=== PATIENT | female | born 1990 | race Caucasian/White ===

== ENCOUNTER 2017-12-26 18:44 | Emergency (ER) | payer OTHER ==
[2017-12-26 19:02] VITALS: BP 111/67
[2017-12-26] MEDS ORDERED: Acetaminophen ADULT LIQ* 650 MG/20.3 ML UDC PO ONE (19:20)
--- NOTE | 2017-12-26 19:22 | UC ---
Headache HPI - HPI Summary HPI Summary: 27 yo female presents with day 4 of a constant headache. Worsening today. 4 days ago her headache began as a diffuse discomfort and throbbing. Today she developed a worsening headache, fever, chills, body aches, nausea, and difficulty concentrating while at work. Has never had a headache like this before. She tells me that she has a history of CP and migraines, but only gets migraines when she has a sinus infection. She denies vision changes, sinus symptoms, cough, SOB, chest pain, abdominal pain, vomiting, dysuria, flank pain , vaginal bleeding. No recent travel. Of note, she mentions that her daughter had hand, foot, and mouth disease about 2 weeks ago. - History Of Current Complaint Chief Complaint: UCHeadache Stated Complaint: HEADACHE Time Seen by Provider: 12/26/17 19:09 Hx Obtained From: Patient Hx Last Menstrual Period: 12/17/17 Onset/Duration: Gradual Onset Initially Headache Was: "Worst Headache Ever" Currently Pain Is: Severe Pain Intensity: 10 Pain Scale Used: 0-10 Numeric Timing: Constant - Allergies/Home Medications Allergies/Adverse Reactions: Allergies Allergy/AdvReac Type Severity Reaction Status Date / Time Latex, Natural Rubber Allergy Intermediate Hives Verified 12/26/17 19:02 Home Medications: Home Medications NK [No Home Medications Reported] 12/26/17 [History Confirmed 12/26/17] PMH/Surg Hx/FS Hx/Imm Hx - Additional Past Medical History Additional PMH: CP - Surgical History Surgical History: None - Family History Known Family History: Positive: None - Social History Occupation: Employed Full-time Lives: With Family Alcohol Use: None Substance Use Type: None Smoking Status (MU): Never Smoked Tobacco Review of Systems Constitutional: Fever, Chills, Fatigue, Other - Body aches Skin: Negative Eyes: Negative ENT: Negative Respiratory: Negative Cardiovascular: Negative Gastrointestinal: Nausea Genitourinary: Negative Motor: Negative Neurovascular: Negative Musculoskeletal: Negative Neurological: Headache, Weakness Psychological: Negative All Other Systems Reviewed And Are Negative: Yes Physical Exam - Summary Physical Exam Summary: GENERAL: Moderately ill appearing. Appears fatigued. Sitting in wheelchair with warm blanket. SKIN: No rashes, sores, or open wounds. HEENT: Head: AT/NC Eyes: PERRLA. EOM intact. Conjunctiva clear without inflammation or discharge. Ears: Hearing grossly normal. TMs intact, no bulging, erythema, or edema. Nose: Nasal mucosa pink and moist. NTTP maxillary and frontal sinus. Throat: Posterior oropharynx without exudates, erythema, or tonsillar enlargement. Uvula midline. NECK: Supple. Nontender. No lymphadenopathy. CHEST: CTAB. No r/r/w. No accessory muscle use. Breathing comfortably and in no distress. CV: RRR. Without m/r/g. Pulses intact. Brisk cap refill. ABDOMEN: Soft. NTTP. No distention or guarding. No CVA tenderness. Bowel sounds present MSK: Moderate TTP about cervical spine. Pain with flexion and extension of c- sprine. UEs and LEs FROM and symmetric strength throughout. No edema. NEURO: Alert. Positive Kernig sign b/l. Negative Brudzinski. CN II-XII grossly intact. PSYCH: Age appropriate behavior. Triage Information Reviewed: Yes Vital Signs: Initial Vital Signs Temp 102.8 F 12/26/17 18:55 Pulse 97 12/26/17 18:55 Resp 18 12/26/17 18:55 BP 111/67 12/26/17 18:55 Pulse Ox 98 12/26/17 18:55 Laboratory Tests 12/26/17 12/26/17 12/26/17 19:14 19:17 19:19 POC Urine Color Yellow POC Urine Clarity Clear POC Urine pH 7.0 POC Ur Specif [place] 1.015 POC Urine Protein Negative POC Ur Glucose (UA) Negative POC Urine Ketones Negative POC Urine Blood Trace-intact A POC Urine Nitrite Negative POC Urine Bilirubin Negative POC Urine Urobilinogen 0.2 POC U Leukocyte Esteras Negative POC Ur Test Influenza A (Rapid) Negative Influenza B (Rapid) Negative Group A Strep Rapid Negative 12/26/17 19:22 POC Urine Color POC Urine Clarity POC Urine pH POC Ur Specif [place] POC Urine Protein POC Ur Glucose (UA) POC Urine Ketones POC Urine Blood POC Urine Nitrite POC Urine Bilirubin POC Urine Urobilinogen POC U Leukocyte Esteras POC Ur Test Negative Influenza A (Rapid) Influenza B (Rapid) Group A Strep Rapid Vital Signs Reviewed: Yes Headache Course/Dx - Course Course Of Treatment: Flu, strep, UA, and negative. 975mg of tylenol given in the clinical course. Given the patient's history and exam, she could have a viral illness such as coxsackie, however there is also a suspicion for meningitis - therefore I have advised her to be further evaluated in the ED. She adamantly refused ambulance transfer and her [id number] will drive her. - Differential Dx/Diagnosis Provider Diagnoses: Fever. Neck pain. Body aches Discharge - Sign-Out/Discharge Documenting (check all that apply): Patient Departure - Discharge Plan Condition: Stable Disposition: TRANS HIGHER LVL OF CARE FAC Referrals: Radha Sawant NP [Primary Care Provider] - Additional Instructions: Please go to the ER for further evaluation of your worsening headache and fever - Billing Disposition and Condition Condition: STABLE Disposition: Trans Higher Lvl of Care Fac
[2017-12-26] MEDS ORDERED: Acetaminophen TAB* 325 MG PO ONE (19:25)
== END 2017-12-26 19:45 | disposition short-term general hospital (02) ==
LOC: UCEAST 18:44
DX: R50.9 Fever, unspecified (principal); M54.2 Cervicalgia; M79.1 Myalgia; Z91.040 Latex allergy status
CPT/HCPCS: 81003; 84702; 87651; 99212; A9270-GY; G0463

== ENCOUNTER 2018-06-16 11:03 | Emergency (ER) | payer OTHER ==
[2018-06-16] MEDS ORDERED: Acetaminophen TAB* 325 MG PO ONE (11:39)
--- NOTE | 2018-06-16 11:42 | UC ---
FLU HPI - HPI Summary HPI Summary: 27 yo female presents with fever, chills, body aches, sore throat, and productive cough since yesterday. She has taken ibuprofen for her symptoms with little relief. She does feels SOB at times and endorses "lung pain" when breathing. She is nauseous, but has not vomited. Denies abdominal pain, dysuria , back pain. - History of Current Complaint Chief Complaint: UCGeneralIllness Stated Complaint: SORE THROAT NAUSEA Time Seen by Provider: 06/16/18 11:41 Hx Last Menstrual Period: 05/17/18 Onset/Duration: Sudden Onset Severity Currently: Severe Severity Initially: Severe Pain Intensity: 10 Pain Scale Used: 0-10 Numeric - Allergy/Home Medications Allergies/Adverse Reactions: Allergies Allergy/AdvReac Type Severity Reaction Status Date / Time Latex, Natural Rubber Allergy Intermediate Hives Verified 06/16/18 11:32 PMH/Surg Hx/FS Hx/Imm Hx - Additional Past Medical History Additional PMH: None - Surgical History Surgical History: None - Family History Known Family History: Positive: None - Social History Lives: With Family Alcohol Use: None Substance Use Type: None Smoking Status (MU): Never Smoked Tobacco Review of Systems All Other Systems Reviewed And Are Negative: Yes Constitutional: Positive: Fever, Chills, Fatigue, Other - Body aches Skin: Positive: Negative Eyes: Positive: Negative ENT: Positive: Sore Throat Respiratory: Positive: Shortness Of Breath, Cough Cardiovascular: Positive: Negative Gastrointestinal: Positive: Nausea Genitourinary: Positive: Negative Neurovascular: Positive: Negative Neurological: Positive: Negative Psychological: Positive: Negative Physical Exam - Summary Physical Exam Summary: GENERAL: Mildly ill appearing. SKIN: No rashes, sores, lesions, or open wounds. HEENT: Head: AT/NC Eyes: Conjunctiva clear without inflammation or discharge. Ears: Hearing grossly normal. TMs intact, no bulging, erythema, or edema. Nose: Nasal mucosa pink and moist. NTTP maxillary and frontal sinus. Throat: Posterior oropharynx without exudates, erythema, or tonsillar enlargement. Uvula midline. NECK: Supple. Nontender. No lymphadenopathy. CHEST: Decreased breath sounds LLL. No r/r. No accessory muscle use. Breathing comfortably and in no distress. CV: Tachycardic. Without m/r/g. Pulses intact. Cap refill <2seconds NEURO: Alert. PSYCH: Age appropriate behavior. Triage Information Reviewed: Yes Vital Signs: Initial Vital Signs Temp 105 F 06/16/18 11:28 Pulse 120 06/16/18 11:28 Resp 20 06/16/18 11:28 BP 112/58 06/16/18 11:28 Pulse Ox 98 06/16/18 11:28 Laboratory Tests 06/16/18 06/16/18 06/16/18 11:43 11:45 11:49 POC Urine Color Yellow POC Urine Clarity Cloudy POC Urine pH 6.5 POC Ur Specif [place] 1.020 POC Urine Protein Negative POC Ur Glucose (UA) Negative POC Urine Ketones Negative POC Urine Blood 2+ A POC Urine Nitrite Positive A POC Urine Bilirubin Negative POC Urine Urobilinogen 0.2 POC U Leukocyte Esteras Negative Influenza A (Rapid) Positive A Group A Strep Rapid Negative Vital Signs Reviewed: Yes Flu Course/Dx - Course Course Of Treatment: CXR: IMPRESSION: CHEST X-RAY FINDINGS ARE COMPATIBLE WITH ATELECTASIS VERSUS PNEUMONIA INVOLVING THE. POSTERIOR, DEPENDENT-MOST PORTION OF THE LEFT LOWER LOBE. UA with signs of infection, but pt has no urinary symptoms. POC flu positive. She was given tylenol and ibuprofen in the clinic and her fever decerased to 101.2F and HR at 106bpm. At this point, I am concerned she may be septic as she meets several SIRS/Sepsis criteria. I discussed this with the pt and recommended transfer to the ED by ambulance. She declined and will have her drive her. - Differential Dx/Diagnosis Provider Diagnosis: Influenza, UTI (urinary tract infection), LLL pneumonia Discharge - Sign-Out/Discharge Documenting (check all that apply): Patient Departure All imaging exams completed and their final reports reviewed: Yes - Discharge Plan Condition: Fair Disposition: HOME-RECOMMEND TO ED Referrals: Radha Sawant NP [Primary Care Provider] - Additional Instructions: Please go to the ER for further evaluation of your fever, elevated heart rate, pneumonia, possible UTI, and positive influenza test. You were given tylenol 950mg and ibuprofen 600mg in the Urgent Care. YOU HAVE DECLINED TRANSFER TO THE ER BY AMBULANCE. BE ADVISED THAT NOT TRAVELING IN A MONITORED SETTING YOU COULD BE RISKING WORSENING OF YOUR CONDITION THAT COULD POSE A THREAT TO YOUR LIFE, HEALTH, AND MEDICAL SAFETY. - Billing Disposition and Condition Condition: FAIR Disposition: Home-Recommend to ED
[2018-06-16 11:49] LABS: Influenza A Molecular POSITIVE (Negative)
[2018-06-16] MEDS ORDERED: Ibuprofen TAB* 600 MG PO ONE (12:26)
[2018-06-16 13:09] VITALS: BP 119/69
== END 2018-06-16 13:27 | disposition home health service (06) ==
LOC: UCEAST 11:03
DX: J11.1 Influenza due to unidentified influenza virus with other respiratory manifestations (principal); N39.0 Urinary tract infection, site not specified; J18.1 Lobar pneumonia, unspecified organism; Z91.040 Latex allergy status
CPT/HCPCS: 71046; 81003; 84702; 87077; 87086; 87186; 87651; 99212; A9270-GY; G0463